=== PATIENT | male | born 1960 | race Two or more races ===

== ENCOUNTER 2020-04-21 06:15 | Day surgery (SDC) | payer OTHER ==
[~2020-04-21 06:15] MED LIST: LANTUS
== END 2020-04-21 17:50 | disposition home or self-care (01) ==
LOC: U 06:15 → CIR.AMB 06:15 → EDBD 07:45 → CIR.AMB 11:30
PROVIDERS: ATTEND Orthopaedic Surgery Hand Surgery
DX: S61.021A Laceration with foreign body of right thumb without damage to nail, initial encounter (principal); Z20.822 Contact with and (suspected) exposure to COVID-19